=== PATIENT | female | born 1960 | race Caucasian/White ===

== ENCOUNTER 2017-09-14 10:30 | Outpatient (RCR) | payer SELFPAY ==
[2017-05-18 09:58] VITALS: BP 132/88
[~2017-09-14 10:30] MED LIST: ACE325 PO; ACET500T68 PO; AMIT-108 PO; BIOT1TAB12 PO; BUPR-149 PO; CITA-156 PO; DIAZ-308 PO; DOCU-416 PO; ECHI80CA2 PO; ESTR-26 PO; ESTR0.62 PO; GAB300 PO; HYDR-4309 PO; IBU200 PO; LETR2.5T4 PO; LISI-362 PO; MET800 PO; META400T PO; MULT-19 PO; MULT-770 PO; NORT50CA40 PO; OMEG-23 PO; OMEG-26 PO; OMEP-218 PO; OXYC-865 PO; PER PO; PROP80CA3 PO; SILV20CR2 TP; TUM500 PO; [UNRECOGNIZED DRUG - CODE] PO; [UNRECOGNIZED DRUG - CODE] PO
[2017-09-14 11:02] LABS: PLATELET COUNT, AUTOMATED 241 K/uL (150-450)
--- NOTE | 2017-09-14 19:20 | ONCOLOGY FOLLOW UP NOTE ---
EVENT DATE: September 14, 2017 DIAGNOSES 1. Right breast cancer. 2. Hypertension. 3. Acid reflux. CHIEF COMPLAINT The patient is here today for followup of her right breast cancer on adjuvant hormonal therapy. ONCOLOGY HISTORY The patient is a postmenopausal woman. PRESENTATION Abnormal screening mammogram which was done January 29, 2016 and showed area with spiculation in the medial upper portion of the right breast has increased in size. DIAGNOSTIC EVALUATION Ultrasound of right breast done on February 05, 2016 did reveal 7.9 mm, well- circumscribed, echogenic nodule at 2 o'clock, which does not account for the spiculation seen on the current mammogram. PROCEDURES 1. Stereotactic right breast biopsy, February 05, 2016. The pathology came back positive for invasive, moderately differentiated carcinoma of the breast. 2. ER is 96.8% positive, NC 90.4% positive. HER2/tonya negative by immunohistochemistry. Ki-67 was 21.9% and P53 was 14.1%. 3. Right breast lumpectomy. 4. Right sentinel lymph node biopsy on March 08, 2016. STAGE Stage IA (T1B N0 CM0) TREATMENT The patient started adjuvant hormonal therapy with letrozole 2.5 mg daily on April 01, 2016. HISTORY OF PRESENT ILLNESS Patient is here today for followup of her right breast cancer. She is doing fine currently. She is still complaining of significant hot flashes despite the use of antidepressant gabapentin and black cohosh tea. She had some cough after she tried to quit smoking. She has occasional diarrhea related to food. She has also back pain. She is weak, tired and fatigued. PAST MEDICAL HISTORY 1. Acid reflux. 2. Hypertension. PAST SURGICAL HISTORY 1. Total abdominal hysterectomy with bilateral salpingo-oophorectomy in 2011; before that had tubal ligation. 2. Elbow surgery of left elbow for ulnar nerve in 1994. 3. In 2002 she had left meniscal injury of the left knee. 4. Tonsillectomy as a child. 5. Appendectomy. 6. Left shoulder surgery x2 in 2006. 7. Right breast lumpectomy and right sentinel lymph node biopsy done on March 08, 2016. 8. Spinal surgery for removal of a cyst between lumbar #4 and lumbar #5 done on August 29, 2016. FAMILY HISTORY Mother had bladder cancer and of liver cancer. Father had bladder cancer and with lung cancer. Maternal grandmother had heart attack. There is no family history of breast or ovarian cancer. SOCIAL HISTORY The patient is with one son. 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 She quit smoking and drinks on weekends. No abuse of illicit drugs. CURRENT MEDICATIONS 1. Neurontin. 2. Skelaxin. 3. Tylenol p.r.n. 4. Centrum silver. 5. Pamelor. 6. Fish oil. 7. Prilosec. 8. Lisinopril. 9. Propranolol. 10. Letrozole 2.5 mg daily. ALLERGIES No known drug allergies. REVIEW OF SYSTEMS CONSTITUTIONAL: Patient has hot flashes. HEENT: Ears: No tinnitus or hearing problem. Nose: No nasal discharge or epistaxis. Throat: No sore throat or mouth ulcers. Eyes: No diplopia or visual changes. RESPIRATORY: She has cough which is dry. CARDIOVASCULAR: No chest pain, orthopnea, or paroxysmal nocturnal dyspnea (PND) . No edema. No palpitations. GASTROINTESTINAL: No nausea or vomiting. No diarrhea or constipation. No change in bowel movements. No heartburn or swallowing difficulties. No abdominal pain. No jaundice. No hematemesis, melena or rectal bleeding. GENITOURINARY: She has occasional diarrhea. No hematuria or dysuria. MUSCULOSKELETAL: She has back pain. NEUROLOGICAL: She has occasional headache. HEMATOLOGIC/LYMPHATIC: She is weak, tired and fatigued. SKIN: No skin rash or lumps. PSYCHIATRIC: She has had some depression lately. PHYSICAL EXAMINATION GENERAL: Looks stable. Well-developed, well-nourished, and in no acute distress. VITAL SIGNS: Blood pressure 119/88, pulse 76 per minute, respirations 16 per minute, temperature 97.4, pulse ox 92% on room air. HEENT: Head: Atraumatic. No sinus tenderness to palpation. Eyes: No icterus or conjunctivitis. Mouth and throat: No oral thrush or mucositis. NECK: Supple. No cervical or supraclavicular lymphadenopathy. LUNGS: Clear to auscultation and percussion bilaterally. HEART: Regular rate and rhythm. No gallops, murmurs, clicks or rubs. ABDOMEN: Soft and lax. No tenderness. No hepatosplenomegaly. No masses. EXTREMITIES: No cyanosis, clubbing or edema. LYMPHATICS: No peripheral lymphadenopathy. NEUROLOGICAL: Conscious, alert and oriented times three. No focal motor or sensory deficits. PSYCHIATRIC: Mood and affect appear normal. SKIN: No skin rash, bruise or purpuric eruption. DIAGNOSTIC DATA CBC showed a white count of 6.5, hemoglobin 14.1, hematocrit 40.6, platelets 441 ,000. MCV is 102.1. Chem panel totally normal. CA 27-29 is pending. ASSESSMENT 1. Stage IA (T1b N0 M0) right breast cancer status post right lumpectomy and right sentinel lymph node biopsy done March 03, 2016. Tumor was ER/NC positive , HER2/tonya negative by immunohistochemistry. Oncotype DX testing showed recurrence score of 19. Patient started adjuvant hormonal therapy with Letrozole 2.5 mg daily on March 31, 2016. She has significant hot flashes from her treatment, despite the fact she is using antidepressant gabapentin and black cohosh tea. Generally speaking she is doing fine. I am planning to continue followup. I will see her again in three months with CBC, chem panel and CA 27-29. 2. Hot flashes, despite the use of antidepressant gabapentin and black cohosh tea. We will continue to monitor. 3. Acid reflux, on Prilosec. 4. Hypertension, on treatment. PLAN 1. Letrozole 2.5 mg daily. 2. Vitamin D 1000 units daily. 3. Patient to return in three months with CBC, chem panel, CA 27-29. 4. Patient is to contact us for any new concern or complaints. [facility]
== END 2017-12-12 ==
LOC: SPU 10:30
PROVIDERS: ATTEND Internal Medicine Hematology
DX: C50.211 Malignant neoplasm of upper-inner quadrant of right female breast (principal); Z17.0 Estrogen receptor positive status [ER+]; N95.1 Menopausal and female climacteric states; K21.9 Gastro-esophageal reflux disease without esophagitis; I10 Essential (primary) hypertension; M54.9 Dorsalgia, unspecified; R53.1 Weakness; R53.83 Other fatigue; Z87.891 Personal history of nicotine dependence
CPT/HCPCS: 36415; 82040; 82247; 82310; 82374; 82435; 82565; 82947; 84075; 84132; 84155; 84295; 84450; 84460; 84520; 85025; 86300; 99212

== ENCOUNTER 2017-12-14 11:11 | Outpatient (RCR) | payer SELFPAY ==
[2017-12-14 11:17] VITALS: BP 140/91
[2017-12-14 11:27] LABS: PLATELET COUNT, AUTOMATED 232 K/uL (150-450)
--- NOTE | 2017-12-14 16:16 | ONCOLOGY FOLLOW UP NOTE ---
EVENT DATE: December 14, 2017 DIAGNOSES 1. Right breast cancer. 2. Hypertension. 3. Acid reflux. CHIEF COMPLAINT The patient is here today for followup of her right breast cancer on adjuvant hormonal therapy. ONCOLOGY HISTORY The patient is a postmenopausal woman. PRESENTATION Abnormal screening mammogram which was done January 29, 2016 and showed area with spiculation in the medial upper portion of the right breast has increased in size. DIAGNOSTIC EVALUATION Ultrasound of right breast done on February 05, 2016 did reveal 7.9 mm, well- circumscribed, echogenic nodule at 2 o'clock, which does not account for the spiculation seen on the current mammogram. PROCEDURES 1. Stereotactic right breast biopsy, February 05, 2016. The pathology came back positive for invasive, moderately differentiated carcinoma of the breast. 2. ER is 96.8% positive, [place] 90.4% positive. HER2/tonya negative by immunohistochemistry. Ki-67 was 21.9% and P53 was 14.1%. 3. Right breast lumpectomy. 4. Right sentinel lymph node biopsy on March 08, 2016. STAGE Stage IA (T1B N0 CM0) TREATMENT The patient started adjuvant hormonal therapy with letrozole 2.5 mg daily on April 01, 2016. HISTORY OF PRESENT ILLNESS Patient is here today for followup of her right breast cancer on adjuvant hormonal therapy with Letrozole. She is having some hot flashes. She has also occasional diarrhea. She has pain in her hands due to arthritis, but other than that she is stable. PAST MEDICAL HISTORY 1. Acid reflux. 2. Hypertension. PAST SURGICAL HISTORY 1. Total abdominal hysterectomy with bilateral salpingo-oophorectomy in 2011; before that had tubal ligation. 2. Elbow surgery of left elbow for ulnar nerve in 1994. 3. In 2002 she had left meniscal injury of the left knee. 4. Tonsillectomy as a child. 5. Appendectomy. 6. Left shoulder surgery x2 in 2006. 7. Right breast lumpectomy and right sentinel lymph node biopsy done on March 08, 2016. 8. Spinal surgery for removal of a cyst between lumbar #4 and lumbar #5 done on August 29, 2016. FAMILY HISTORY Mother had bladder cancer and of liver cancer. Father had bladder cancer and with lung cancer. Maternal grandmother had heart attack. There is no family history of breast or ovarian cancer. SOCIAL HISTORY The patient is with one son. 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 She quit smoking and drinks on weekends. No abuse of illicit drugs. CURRENT MEDICATIONS 1. Neurontin. 2. Skelaxin. 3. Tylenol p.r.n. 4. Centrum silver. 5. Pamelor. 6. Fish oil. 7. Prilosec. 8. Lisinopril. 9. Propranolol. 10. Letrozole 2.5 mg daily. ALLERGIES No known drug allergies. REVIEW OF SYSTEMS CONSTITUTIONAL: She has hot flashes. HEENT: Ears: No tinnitus or hearing problem. Nose: No nasal discharge or epistaxis. Throat: No sore throat or mouth ulcers. Eyes: No diplopia or visual changes. RESPIRATORY: She has cough which is dry. CARDIOVASCULAR: No chest pain, orthopnea, or paroxysmal nocturnal dyspnea (PND) . No edema. No palpitations. GASTROINTESTINAL: No nausea or vomiting. She has occasional diarrhea. No constipation. No change in bowel movements. No heartburn or swallowing difficulties. No abdominal pain. No jaundice. No hematemesis, melena or rectal bleeding. GENITOURINARY: She has occasional diarrhea. No hematuria or dysuria. MUSCULOSKELETAL: She has pain in the hands from arthritis. NEUROLOGICAL: She has occasional headache. HEMATOLOGIC/LYMPHATIC: She is weak, tired and fatigued. SKIN: No skin rash or lumps. PSYCHIATRIC: She has had some depression lately. PHYSICAL EXAMINATION GENERAL: Looks stable. Well-developed, well-nourished, and in no acute distress. VITAL SIGNS: Blood pressure 140/91, pulse 64 per minute, temperature 97.8, pulse ox 97% on room air. HEENT: Head: Atraumatic. No sinus tenderness to palpation. Eyes: No icterus or conjunctivitis. Mouth and throat: No oral thrush or mucositis. NECK: Supple. No cervical or supraclavicular lymphadenopathy. LUNGS: Clear to auscultation and percussion bilaterally. HEART: Regular rate and rhythm. No gallops, murmurs, clicks or rubs. ABDOMEN: Soft and lax. No tenderness. No hepatosplenomegaly. No masses. EXTREMITIES: No cyanosis, clubbing or edema. LYMPHATICS: No peripheral lymphadenopathy. NEUROLOGICAL: Conscious, alert and oriented times three. No focal motor or sensory deficits. PSYCHIATRIC: Mood and affect appear normal. SKIN: No skin rash, bruise or purpuric eruption. DIAGNOSTIC DATA CBC showed white count 5.7, hemoglobin 14.3, hematocrit 41, platelets 232,000. Chem panel totally normal except BUN 21, creatinine 1.2. Other parameters are normal. CA 27-29 is pending, but her last level was 25.4, which was own from 34. ASSESSMENT 1. Stage IA (T1b N0 M0) right breast cancer status post right lumpectomy and right sentinel lymph node biopsy done March 03, 2016. Tumor was ER/NJ positive , HER2/tonya negative by immunohistochemistry. Oncotype DX testing showed recurrence score of 19. Patient started adjuvant hormonal therapy with Letrozole 2.5 mg daily March 31, 2016. She is tolerating treatment well currently except for some hot flashes. Her general condition is very stable and she is doing very well. I am planning to continue followup. I will see her again in three months with CBC, chem panel, CA 27-29. Her last CA 27-29 was normal at 25.4, which was down from 34. Her level for today is pending. I am planning also to check her mammogram which will be due in January 2018. 2. Hot flashes. Continue to monitor. 3. Acid reflux, on Prilosec. 4. Hypertension, on treatment. PLAN 1. Letrozole 2.5 mg daily. 2. Vitamin D 1000 units daily. 3. Patient to return in three months with CBC, chem panel, CA 27-29. 4. Check mammogram January 2018. 5. Patient is to contact us for any new concerns or complaints. [facility]
== END 2018-01-02 10:34 | disposition home or self-care (01) ==
LOC: SPU 11:11
PROVIDERS: ATTEND Internal Medicine Hematology
DX: C50.911 Malignant neoplasm of unspecified site of right female breast (principal); Z79.811 Long term (current) use of aromatase inhibitors; K21.9 Gastro-esophageal reflux disease without esophagitis; I10 Essential (primary) hypertension; Z87.891 Personal history of nicotine dependence
CPT/HCPCS: 36415; 82040; 82247; 82310; 82374; 82435; 82565; 82947; 84075; 84132; 84155; 84295; 84450; 84460; 84520; 85025; 86300; 99212

== ENCOUNTER → 2018-03-14 | Outpatient (CLI) | payer SELFPAY ==
--- NOTE | 2018-03-19 13:23 | RADIOLOGY IMAGING REPORT ---
FACILITY: [facility] - [place] PATIENT NAME: PING BAI : [id number] MR: [id number] V: [id number] EXAM DATE: [id number] ORDERING PHYSICIAN: VICKI MCKNIGHT TECHNOLOGIST: Yesenia Mayorga PROCEDURE:BILATERAL DIAGNOSTIC DIGITAL MAMMOGRAM WITH CAD ASSISTED INTERPRETATION & 3D TOMOSYNTHESIS COMPARISON:Prior mammograms 02/08/17, 08/12/16, 01/29/16, 07/29/15. INDICATIONS:prior history of breast cancer FINDINGS: Moderately dense fibroglandular tissue is seen throughout the breasts. The parenchymal pattern has remained stable allowing for difference in mammographic technique & patient positioning. There are postsurgical changes from previous lumpectomy in the medial upper Right breast. There is no evidence of malignant appearing mass, malignant appearing calcifications or other secondary sign of malignancy in either breast at this time. DIAGNOSTIC CATEGORY 2--BENIGN FINDING. RECOMMENDATIONS: ROUTINE MAMMOGRAM AND CLINICAL EVALUATION. IMPRESSION: BIRADS 2: Benign finding. No significant abnormality is seen. Dictated by: Dennise Wang M.D. on 03/14/2018 at 13:59 Transcribed by: PACO on 03/14/2018 at 14:04 Approved by: Dennise Wang M.D. on 03/14/2018 at 14:51 [facility]
== END ==
LOC: MAMO 13:14
PROVIDERS: ATTEND Internal Medicine Hematology
DX: C50.211 Malignant neoplasm of upper-inner quadrant of right female breast (principal); Z17.0 Estrogen receptor positive status [ER+]; Z85.3 Personal history of malignant neoplasm of breast

== ENCOUNTER 2018-03-15 10:00 | Outpatient (RCR) | payer SELFPAY ==
[2018-03-14 09:14] VITALS: BP 134/103
[2018-03-14 09:35] LABS: PLATELET COUNT, AUTOMATED 235 K/uL (150-450)
--- NOTE | 2018-03-14 14:52 | RADIOLOGY IMAGING REPORT ---
FACILITY: [facility] - [place] PATIENT NAME: PING BAI : [id number] MR: [id number] V: [id number] EXAM DATE: [id number] ORDERING PHYSICIAN: VICKI MCKNIGHT TECHNOLOGIST: Yesenia Mayorga PROCEDURE:BILATERAL DIAGNOSTIC DIGITAL MAMMOGRAM WITH CAD ASSISTED INTERPRETATION & 3D TOMOSYNTHESIS COMPARISON:Prior mammograms 02/08/17, 08/12/16, 01/29/16, 07/29/15. INDICATIONS:prior history of breast cancer FINDINGS: Moderately dense fibroglandular tissue is seen throughout the breasts. The parenchymal pattern has remained stable allowing for difference in mammographic technique & patient positioning. There are postsurgical changes from previous lumpectomy in the medial upper Right breast. There is no evidence of malignant appearing mass, malignant appearing calcifications or other secondary sign of malignancy in either breast at this time. DIAGNOSTIC CATEGORY 2--BENIGN FINDING. RECOMMENDATIONS: ROUTINE MAMMOGRAM AND CLINICAL EVALUATION. IMPRESSION: BIRADS 2: Benign finding. No significant abnormality is seen. Dictated by: Dennise Wang M.D. on 03/14/2018 at 13:59 Transcribed by: PACO on 03/14/2018 at 14:04 Approved by: Dennise Wang M.D. on 03/14/2018 at 14:51 [facility]
[~2018-03-15 10:00] MED LIST changes: -HYDR-4309 PO; +HYDR-653 PO
[2018-03-15 10:09] VITALS: BP 138/95
--- NOTE | 2018-03-15 17:06 | ONCOLOGY FOLLOW UP NOTE ---
EVENT DATE: March 15, 2018 DIAGNOSES 1. Right breast cancer. 2. Hypertension. 3. Acid reflux. CHIEF COMPLAINT The patient is here today for followup of her right breast cancer on adjuvant hormonal therapy with Letrozole. ONCOLOGY HISTORY The patient is a postmenopausal woman. PRESENTATION Abnormal screening mammogram which was done January 29, 2016 and showed area with spiculation in the medial upper portion of the right breast has increased in size. DIAGNOSTIC EVALUATION Ultrasound of right breast done on February 05, 2016 did reveal 7.9 mm, well- circumscribed, echogenic nodule at 2 o'clock, which does not account for the spiculation seen on the current mammogram. PROCEDURES 1. Stereotactic right breast biopsy, February 05, 2016. The pathology came back positive for invasive, moderately differentiated carcinoma of the breast. 2. ER is 96.8% positive, [place] 90.4% positive. HER2/tonya negative by immunohistochemistry. Ki-67 was 21.9% and P53 was 14.1%. 3. Right breast lumpectomy. 4. Right sentinel lymph node biopsy on March 08, 2016. STAGE Stage IA (T1B N0 CM0) TREATMENT The patient started adjuvant hormonal therapy with letrozole 2.5 mg daily on April 01, 2016. HISTORY OF PRESENT ILLNESS Patient is here today for followup of her right breast cancer on adjuvant hormonal therapy with Letrozole. She is doing fine currently. She has still hot flashes. She has occasional diarrhea. She has pain in the hands from arthritis, especially the knuckles of the fingers. She has also occasional headache. PAST MEDICAL HISTORY 1. Acid reflux. 2. Hypertension. PAST SURGICAL HISTORY 1. Total abdominal hysterectomy with bilateral salpingo-oophorectomy in 2011; before that had tubal ligation. 2. Elbow surgery of left elbow for ulnar nerve in 1994. 3. In 2002 she had left meniscal injury of the left knee. 4. Tonsillectomy as a child. 5. Appendectomy. 6. Left shoulder surgery x2 in 2006. 7. Right breast lumpectomy and right sentinel lymph node biopsy done on March 08, 2016. 8. Spinal surgery for removal of a cyst between lumbar #4 and lumbar #5 done on August 29, 2016. FAMILY HISTORY Mother had bladder cancer and of liver cancer. Father had bladder cancer and with lung cancer. Maternal grandmother had heart attack. There is no family history of breast or ovarian cancer. SOCIAL HISTORY The patient is with one son. 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 She quit smoking and drinks on weekends. No abuse of illicit drugs. CURRENT MEDICATIONS 1. Neurontin. 2. Skelaxin. 3. Tylenol p.r.n. 4. Centrum silver. 5. Pamelor. 6. Fish oil. 7. Prilosec. 8. Lisinopril. 9. Propranolol. 10. Letrozole 2.5 mg daily. ALLERGIES No known drug allergies. REVIEW OF SYSTEMS CONSTITUTIONAL: She has hot flashes. HEENT: Ears: No tinnitus or hearing problem. Nose: No nasal discharge or epistaxis. Throat: No sore throat or mouth ulcers. Eyes: No diplopia or visual changes. RESPIRATORY: She has cough which is dry. CARDIOVASCULAR: No chest pain, orthopnea, or paroxysmal nocturnal dyspnea (PND). No edema. No palpitations. GASTROINTESTINAL: No nausea or vomiting. She has occasional diarrhea. No constipation. No change in bowel movements. No heartburn or swallowing difficulties. No abdominal pain. No jaundice. No hematemesis, melena or rectal bleeding. GENITOURINARY: She has occasional diarrhea. No hematuria or dysuria. MUSCULOSKELETAL: She has pain in the hands from arthritis, affecting mainly the knuckles of the fingers. NEUROLOGICAL: She has headache intermittently. HEMATOLOGIC/LYMPHATIC: She is weak, tired and fatigued. SKIN: No skin rash or lumps. PSYCHIATRIC: She has had some depression lately. PHYSICAL EXAMINATION GENERAL: Looks stable. Well-developed, well-nourished, and in no acute distress. VITAL SIGNS: Blood pressure 138/95, pulse 116 per minute, respirations 16 per minute, temperature 97.5, pulse ox 94% on room air. HEENT: Head: Atraumatic. No sinus tenderness to palpation. Eyes: No icterus or conjunctivitis. Mouth and throat: No oral thrush or mucositis. NECK: Supple. No cervical or supraclavicular lymphadenopathy. LUNGS: Clear to auscultation and percussion bilaterally. HEART: Regular rate and rhythm. No gallops, murmurs, clicks or rubs. ABDOMEN: Soft and lax. No tenderness. No hepatosplenomegaly. No masses. EXTREMITIES: No cyanosis, clubbing or edema. LYMPHATICS: No peripheral lymphadenopathy. NEUROLOGICAL: Conscious, alert and oriented times three. No focal motor or sensory deficits. PSYCHIATRIC: Mood and affect appear normal. SKIN: No skin rash, bruise or purpuric eruption. DIAGNOSTIC DATA CBC showed white count 4.9, hemoglobin 15.1, hematocrit 42.7, platelets 235,000. Chem panel totally normal except chloride 108, carbon dioxide 20, blood sugar 119. CA 27-29 is pending. Her last CA 27-29 was 39.7, up from 25.4. Her mammogram on March 14, 2018 was read as benign BI-RADS 2. ASSESSMENT 1. Stage IA (T1b N0 M0) right breast cancer status post right lumpectomy and right sentinel lymph node biopsy done March 03, 2016. Tumor was ER/MO positive, HER2/tonya negative by immunohistochemistry. Oncotype DX testing showed recurrence score of 19. Patient started adjuvant hormonal therapy with Letrozole 2.5 mg daily March 31, 2016. She is tolerating treatment very well so far except for significant hot flashes. Her general condition is very stable currently on the treatment. I am planning to continue followup. I will see her again in three months with CBC, chem panel, CA 27-29. Her CA 27-29 is pending this visit, and if it continues to rise then we are going to do some imaging studies to see the cause of the rise of the CA 27-29. If the CA 27-29 comes back normal then I will see her again in three months with CBC, chem panel and CA 27-29. Her mammogram on March 14, 2018 was read as benign BI-RADS 2. 2. Hot flashes. Continue to monitor. 3. Acid reflux, on Prilosec. 4. Hypertension, on treatment. PLAN 1. Letrozole 2.5 mg daily. 2. Vitamin D 1000 units daily. 3. Patient to return in three months with CBC, chem panel, CA 27-29. 4. Patient is to contact us for any new concern or complaints. [facility]
== END 2018-06-11 ==
LOC: ONC 10:00
PROVIDERS: ATTEND Internal Medicine Hematology
DX: C50.211 Malignant neoplasm of upper-inner quadrant of right female breast (principal); Z79.811 Long term (current) use of aromatase inhibitors; Z78.0 Asymptomatic menopausal state; K21.9 Gastro-esophageal reflux disease without esophagitis; I10 Essential (primary) hypertension; Z87.891 Personal history of nicotine dependence
CPT/HCPCS: 36415; 77062; 77066; 82040; 82247; 82310; 82374; 82435; 82565; 82947; 84075; 84132; 84155; 84295; 84450; 84460; 84520; 85025; 86300; 99212

== ENCOUNTER 2018-11-02 10:00 | Outpatient (RCR) | payer BC ==
--- NOTE | 2018-09-18 16:55 | NUR ---
[place] pharmacy called wanting a refill for Connie for Letrozole. Gave her #[phone] with 3 refills
[2018-10-31 10:27] LABS: PLATELET COUNT, AUTOMATED 223 K/uL (150-450)
[2018-10-31 10:30] VITALS: BP 145/98
--- NOTE | 2018-10-31 14:13 | RADIOLOGY IMAGING REPORT ---
FACILITY: [facility] PATIENT NAME: Ivone Castellano : 1960 MR: [id number] V: [id number] EXAM DATE: ORDERING PHYSICIAN: VICKI MCKNIGHT TECHNOLOGIST: [place] [facility] [place] Patient: Ivone Castellano : 1960 Visit/Account:[id number] Date of Sevice: 10/31/2018 DEXA Scan Clinical history: Chest breast cancer on aromatase inhibitor. Comparison: DEXA scan from 03/24/2016. LUMBAR SPINE: The bone mineral density (BMD) measured from L1-L4 correlates with a Z-score of 2.5 and a T-score of 1.7 which is Normal as defined by the World Health Organization. The corresponding risk of fracture in the lumbar spine is Not increased compared with a young adult reference population. This value canas s increase by one % since the prior study. More than 5% change is considered significant. HIP: Bone mineral density (BMD) measured in the LEFT total hip region correlates with a Z-score -0.4 and a T-score of -1 which is normal as defined by the World Health Organization. The corresponding risk of fracture in the hip is 2 alexander es increased compared to a young adult reference population. This value has decrease by 6.2 % since t he prior study. More than 5% change is considered significant. T score left femoral neck -1.2 Bone mineral density (BMD) measured in the Femoral Neck region measures 0.876 g/cm?. IMPRESSION: 1. Lumbar spine: Normal. There has been 1% increase in the bone mineral density since the previous exam. 2. Left Total Hip: Normal. There has been 6.2% decrease in the bone mineral density since the previ ous exam. 3. Femoral Neck: Bone Mineral Density is 0.876 g/cm? The next DEXA scan of this patient should include the following sites: L1-L4 and the left hip. FRAX? WHO Fracture Risk Assessment Tool link: <http://www.shef.ac.uk/FRAX/tool.jsp?locationValue=9> PLEASE NOTE: 1) The World Health Organization defines low BMD as follows: T-score Normal > -1 Osteopenia < -1 and > -2.5 Osteoporosis < -2.5 without fractures Established osteoporosis < -2.5 with fractures 2) In general, you may wish to consider: Diagnosis Treatment Follow-up DEXA Normal BMD Prevention 2-3 years Osteopenia Prevention/therapy 1-2 years Osteoporosis Therapy Yearly 3) Fracture risk estimated from the T-score is more accurate for vertebral fractures (often spontane ous) than for hip fractures. Report Dictated By: Dennise Wang MD at 10/31/2018 2:08 PM Report E-Signed By: Dennise Wnag MD at 10/31/2018 2:09 PM WSN:[email or web address]
[~2018-11-02 10:00] MED LIST changes: +PROP80CA PO; -PROP80CA3 PO
[2018-11-02 10:08] VITALS: BP 152/98
--- NOTE | 2018-11-02 22:36 | [facility] ONCOLOGY NOTE ---
EVENT DATE: November 02, 2018 DIAGNOSES 1. Right breast cancer. 2. Hypertension. 3. Acid reflux. CHIEF COMPLAINT The patient is here today for followup of her right breast cancer on adjuvant hormonal therapy with letrozole. ONCOLOGY HISTORY The patient is a postmenopausal woman. PRESENTATION Abnormal screening mammogram which was done January 29, 2016, and showed the area with spiculation in the medial upper portion of the right breast had increased in size. DIAGNOSTIC EVALUATION Ultrasound of right breast done on February 05, 2016, did reveal 7.9 mm, well- circumscribed, echogenic nodule at 2 o'clock, which does not account for the spiculation seen on the current mammogram. PROCEDURES 1. Stereotactic right breast biopsy February 05, 2016. The pathology came back positive for invasive, moderately differentiated carcinoma of the breast. 2. ER is 96.8% positive, UT 90.4% positive. HER2/tonya negative by immunohistochemistry. Ki-67 was 21.9%, and P53 was 14.1%. 3. Right breast lumpectomy. 4. Right sentinel lymph node biopsy on March 08, 2016. STAGE Stage IA (T1B N0 CM0) TREATMENT The patient started adjuvant hormonal therapy with letrozole 2.5 mg daily on April 01, 2016. HISTORY OF PRESENT ILLNESS Patient is here today for followup of her right breast cancer on adjuvant hormonal therapy with letrozole, started on April 01, 2016. Patient is doing fine currently. She has some hot flashes and night sweating. She has also some arthritis in her hands, knees, and elbows. She is weak, tired, and fatigued, but generally speaking, she is stable. PAST MEDICAL HISTORY 1. Acid reflux. 2. Hypertension. PAST SURGICAL HISTORY 1. Total abdominal hysterectomy with bilateral salpingo-oophorectomy in 2011; before that, had tubal ligation. 2. Elbow surgery of left elbow for ulnar nerve in 1994. 3. In 2002, she had left meniscal injury of the left knee. 4. Tonsillectomy as a child. 5. Appendectomy. 6. Left shoulder surgery x2 in 2006. 7. Right breast lumpectomy and right sentinel lymph node biopsy done on March 08, 2016. 8. Spinal surgery for removal of a cyst between lumbar 4 and lumbar 5 done on August 29, 2016. FAMILY HISTORY Mother had bladder cancer and of liver cancer. Father had bladder cancer and with lung cancer. Maternal grandmother had a heart attack. There is no family history of breast or ovarian cancer. SOCIAL HISTORY The patient is with one son. 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 She quit smoking and drinks on weekends. No abuse of illicit drugs. CURRENT MEDICATIONS 1. Neurontin. 2. Skelaxin. 3. Tylenol p.r.n. 4. Centrum silver. 5. Pamelor. 6. Fish oil. 7. Prilosec. 8. Lisinopril. 9. Propranolol. 10. Letrozole 2.5 mg daily. ALLERGIES No known drug allergies. REVIEW OF SYSTEMS CONSTITUTIONAL: The patient has some hot flashes with night sweating. No appetite or weight change. No fever and chills. No recent infection. HEENT: Ears: No tinnitus or hearing problem. Nose: No nasal discharge or epistaxis. Throat: No sore throat or mouth ulcers. Eyes: No diplopia or visual changes. RESPIRATORY: No shortness of breath. No cough, expectoration, or hemoptysis. CARDIOVASCULAR: No chest pain, orthopnea, or paroxysmal nocturnal dyspnea (PND). No edema. No palpitations. GASTROINTESTINAL: No nausea or vomiting. No diarrhea or constipation. No change in bowel movements. No heartburn or swallowing difficulties. No abdominal pain. No jaundice. No hematemesis, melena, or rectal bleeding. GENITOURINARY: No hematuria or dysuria. MUSCULOSKELETAL: She has pain in the hands, knees, and elbows. NEUROLOGIC: No tingling or numbness in the hands or feet. No headaches or convulsions. HEMATOLOGIC/LYMPHATIC: No bleeding or easy bruising. She is tired sometimes. No weakness. No enlarged lymph nodes. SKIN: No skin rash or lumps. PSYCHIATRIC: No anxiety or depression. PHYSICAL EXAMINATION GENERAL: Looks stable. Well developed, well nourished, and in no acute distress. VITAL SIGNS: Blood pressure 152/98, pulse 81 per minute, respirations 16 per minute, temperature 97.8, pulse ox 92% on room air. HEENT: Head: Atraumatic. No sinus tenderness to palpation. Eyes: No icterus or conjunctivitis. Mouth and throat: No oral thrush or mucositis. NECK: Supple. No cervical or supraclavicular lymphadenopathy. LUNGS: Clear to auscultation and percussion bilaterally. HEART: Regular rate and rhythm. No gallops, murmurs, clicks, or rubs. ABDOMEN: Soft and lax. No tenderness. No hepatosplenomegaly. No masses. EXTREMITIES: No cyanosis, clubbing, or edema. LYMPHATICS: No peripheral lymphadenopathy. NEUROLOGIC: Conscious, alert, and oriented times three. No focal motor or sensory deficits. PSYCHIATRIC: Mood and affect appear normal. SKIN: No skin rash, bruise, or purpuric eruption. DIAGNOSTIC DATA CBC showed white count 5.3, hemoglobin 13.2, hematocrit 39, platelets 223,000. Chem panel is normal except creatinine 1.1. CA27.29 is 36.6, up from 24.3, but the patient has had similar fluctuations in the past. IMAGING DEXA scan done in October 2018 was normal. ASSESSMENT 1. Stage IA (T1b N0 M0) right breast cancer, status post right lumpectomy and right sentinel lymph node biopsy done March 03, 2016. Tumor was ER/UT positive, HER2/tonya negative by immunohistochemistry. Oncotype DX testing showed recurrence score of 19. Patient started adjuvant hormonal therapy with letrozole 2.5 mg March 31, 2016. She is tolerating treatment very well so far except for some hot flashes. General condition is very stable. I am planning to continue same treatment. I will see her again in three months with CBC, chemistry panel, CA27.29. Her DEXA scan October 2018 was reported normal. I am planning to continue followup, so I will see the patient in three months with CBC, chemistry panel, CA27.29, and in the meantime, will continue letrozole 2.5 mg daily. 2. Hot flashes. Continue to monitor. 3. Acid reflux, on Prilosec. 4. Hypertension, on treatment. PLAN 1. Letrozole 2.5 mg daily. 2. Vitamin D 1000 units daily. 3. Patient to return in three months with CBC, chem panel, CA27.29. 4. Patient is to contact us for any new concern or complaints. [facility]
== END 2019-01-28 ==
LOC: ONC 10:00
PROVIDERS: ATTEND Internal Medicine Hematology
DX: C50.211 Malignant neoplasm of upper-inner quadrant of right female breast (principal); Z79.811 Long term (current) use of aromatase inhibitors; I10 Essential (primary) hypertension; K21.9 Gastro-esophageal reflux disease without esophagitis
CPT/HCPCS: 36415; 77080; 82040; 82247; 82310; 82374; 82435; 82565; 82947; 84075; 84132; 84155; 84295; 84450; 84460; 84520; 85025; 99212